=== PATIENT | female | born 1985 | race Two or more races ===

== ENCOUNTER 2016-11-10 00:01 | Emergency (ER) | payer MEDICAID ==
[2016-11-10] MEDS ORDERED: ALBUTEROL SULFATE HFA (90 MCG/PUFF) 8 GM MDI (1 MDI/ER DISP) IH ONE (02:47)
[2016-11-10] MEDS ORDERED: PREDNISONE 20 MG TABLET PO ONE (02:47)
--- NOTE | 2016-11-10 02:48 | ER Document Report ---
ED Allergic Reaction - General Mode of Arrival: Ambulatory Information source: Patient TRAVEL OUTSIDE OF THE [place] IN LAST 30 DAYS: No - HPI Patient complains to provider of: Possible Allergic Reaction Onset: This afternoon Skin rash / itching: Trunk, Extremities, "Hives" Associated symptoms: Other - see above <HALINA QUINTEROS - Last Filed: 11/10/16 03:13> - General TRAVEL OUTSIDE OF THE [place] IN LAST 30 DAYS: No <ZAIN BORGES - Last Filed: 11/10/16 03:41> - General Chief Complaint: Allergic Reaction Stated Complaint: CHEST TIGHTNESS Notes: 31-year-old female presents to the ED complaining of an allergic reaction that started this evening while cleaning. Patient states that her left arm suddenly became itchy and then 10 minutes later broke out in hives to the bilateral upper and lower extremities and trunk. Patient is additionally complaining of chest tightness. Patient claims to have taken Benadryl prior to arrival and it helped relieve the itching and hives. (HALINA QUINTEROS) - Related Data Allergies/Adverse Reactions: No Known Allergies Allergy (Verified 10/30/12 01:22) Past Medical History - General Information source: Patient - Social History Smoking Status: Current Every Day Smoker Chew tobacco use (# tins/day): No Frequency of alcohol use: None Drug Abuse: None Family History: None Patient has suicidal ideation: No Patient has homicidal ideation: No Pulmonary Medical History: Reports: Hx Asthma Past Surgical History: Reports: Hx Section, Hx Cholecystectomy - Immunizations Immunizations up to date: Yes Hx Diphtheria, Pertussis, Tetanus Vaccination: Yes <HALINA QUINTEROS - Last Filed: 11/10/16 03:13> - Social History Smoking Status: Current Every Day Smoker Chew tobacco use (# tins/day): No Frequency of alcohol use: None Drug Abuse: None Family History: None Patient has suicidal ideation: No Patient has homicidal ideation: No Pulmonary Medical History: Reports: Hx Asthma Denies: Hx Tuberculosis Renal/ Medical History: Denies: Hx Peritoneal Dialysis Past Surgical History: Reports: Hx Section - SEP 03 2012, Hx Cholecystectomy - 2010. Denies: Hx Pacemaker - Immunizations Immunizations up to date: Yes Hx Diphtheria, Pertussis, Tetanus Vaccination: Yes Hx Pneumococcal Vaccination: 09/27/12 <ZAIN BORGES - Last Filed: 11/10/16 03:41> Review of Systems - Review of Systems Constitutional: No symptoms reported EENT: No symptoms reported Cardiovascular: See HPI, Other - chest tightness Respiratory: No symptoms reported Gastrointestinal: No symptoms reported Genitourinary: No symptoms reported Female Genitourinary: No symptoms reported Musculoskeletal: No symptoms reported Skin: See HPI, Rash - hives to the bilateral upper and lower extremities and trunk Hematologic/Lymphatic: No symptoms reported Neurological/Psychological: No symptoms reported <HALINA QUINTEROS - Last Filed: 11/10/16 03:13> Physical Exam - Vital signs Interpretation: Normal - General General appearance: Alert In distress: None - HEENT Head: Normocephalic, Atraumatic Eyes: Normal Extraocular movements intact: Yes Pupils: PERRL - Respiratory Respiratory status: No respiratory distress Breath sounds: Normal. No: Wheezing - Cardiovascular Rhythm: Regular Heart sounds: Normal auscultation - Abdominal Inspection: Normal - see skin exam below - Back Back: Normal - see skin exam below - Extremities General upper extremity: Normal inspection - see skin exam below, Normal ROM General lower extremity: Normal inspection - see skin exam below, Normal ROM - Neurological Neuro grossly intact: Yes Cognition: Normal Orientation: AAOx4 [place] Coma Scale Eye Opening: Spontaneous [place] Coma Scale Verbal: Oriented [place] Coma Scale Motor: Obeys Commands Valerio Coma Scale Total: 15 Speech: Normal - Psychological Associated symptoms: Normal affect, Normal mood - Skin Skin Temperature: Warm Skin Moisture: Dry Skin irregularity: other - Mild diffuse urticaria on bilateral upper extremity and trunk Location of irregularity: Extremities - Bilateral upper, Other - Trunk Character of irregularity: Urticarial <HALINA QUINTEROS - Last Filed: 11/10/16 03:13> - Vital signs Interpretation: Normal - General General appearance: Appears well, Alert - HEENT Head: Normocephalic, Atraumatic Eyes: Normal Pupils: PERRL - Respiratory Respiratory status: No respiratory distress Chest status: Nontender Breath sounds: Normal Chest palpation: Normal - Cardiovascular Rhythm: Regular Heart sounds: Normal auscultation Murmur: No - Abdominal Inspection: Normal Distension: No distension Bowel sounds: Normal Tenderness: Nontender Organomegaly: No organomegaly - Back Back: Normal, Nontender - Extremities General upper extremity: Normal inspection, Nontender, Normal color, Normal ROM , Normal temperature General lower extremity: Normal inspection, Nontender, Normal color, Normal ROM , Normal temperature, Normal weight bearing. No: Darnell's sign - Neurological Neuro grossly intact: Yes Cognition: Normal Orientation: AAOx4 [place] Coma Scale Eye Opening: Spontaneous Valerio Coma Scale Verbal: Oriented [place] Coma Scale Motor: Obeys Commands Valerio Coma Scale Total: 15 Speech: Normal Motor strength normal: LUE, RUE, LLE, RLE Sensory: Normal - Psychological Associated symptoms: Normal affect, Normal mood - Skin Skin Temperature: Warm Skin Moisture: Dry <ZAIN BORGES - Last Filed: 11/10/16 03:41> - Vital signs Vitals: Temp Pulse Resp BP Pulse Ox 98.1 F 101 H 20 139/75 H 96 11/10/16 00:08 11/10/16 00:08 11/10/16 00:08 11/10/16 00:08 11/10/16 00:08 (HALINA QUINTEROS) Course <HALINA QUINTEROS - Last Filed: 11/10/16 03:13> <ZAIN BORGES - Last Filed: 11/10/16 03:41> - Re-evaluation Re-evalutation: 11/10/16 Patient with urticaria. Patient will be given steroids. Refill of albuterol inhaler, EpiPen. Patient is to follow-up with her doctor to return if she has any concerning symptoms. No respiratory distress. no evidence for anaphylaxis. Stable for discharge home. (ZAIN BORGES) - Vital Signs Vital signs: Temp Pulse Resp BP Pulse Ox 97.7 F 91 20 105/86 H 97 11/10/16 03:00 11/10/16 03:00 11/10/16 03:00 11/10/16 03:00 11/10/16 03:00 (HALINA QUINTEROS) Discharge <HALINA QUINTEROS - Last Filed: 11/10/16 03:13> <ZAIN BORGES - Last Filed: 11/10/16 03:41> - Discharge Clinical Impression: Urticaria Condition: Stable Disposition: HOME, SELF-CARE Instructions: Acute Urticaria ([facility]) Prescriptions: Epinephrine [Epipen 2-Percy] 0.3 mg IM ONCE #1 ml Prednisone 40 mg PO DAILY #6 tablet Forms: Return to Work Scribe Attestation: 11/10/16 03:41 I personally performed the services described in the documentation, reviewed and edited the documentation which was dictated to the scribe in my presence, and it accurately records my words and actions. (ZAIN BORGES) Scribe Documentation - Scribe Written by Mary Ellen:: Mary Ellen Shields, 11/10/2016 03:22 acting as scribe for :: Abby <HALINA QUINTEROS - Last Filed: 11/10/16 03:13>
[2016-11-10 03:01] VITALS: BP 105/86
== END 2016-11-10 03:03 | disposition home or self-care (01) ==
LOC: ER 00:01
DX: L50.9 Urticaria, unspecified (principal); R07.89 Other chest pain; F17.200 Nicotine dependence, unspecified, uncomplicated; J45.909 Unspecified asthma, uncomplicated
CPT/HCPCS: 99283; J7512; J3490